=== PATIENT | male | born 1960 | race Two or more races ===

== ENCOUNTER 2018-02-19 12:51 | Emergency (ER) | payer BC ==
[2018-02-19 13:19] VITALS: BP 116/79
--- NOTE | 2018-02-19 14:14 | UC ---
Head Injury HPI - HPI Summary HPI Summary: 57 year old male with head injury. While playing volley ball was hit in head last night. [place] his head ring for a few seconds. Did not fall. No VALERO at the time. Kept playing for 2 + more hours. Injury about 1930 yesterday. Slept fine . Went to work and started to have VALERO. no neuro deficits. - History Of Current Complaint Chief Complaint: UCHeadInjury Stated Complaint: HEAD INJURY Time Seen by Provider: 02/19/18 13:13 Hx Obtained From: Patient Onset/Duration: Gradual Onset Pain Intensity: 6 Associated Signs And Symptoms: Positive: Nausea. Negative: LOC (Time In Secs./ Mins/Hrs), Confusion, Memory Loss, Seizure, Epistaxis, Neck Pain, Vomiting - Allergies/Home Medications Allergies/Adverse Reactions: Allergies Allergy/AdvReac Type Severity Reaction Status Date / Time No Known Allergies Allergy Verified 02/19/18 13:19 PMH/Surg Hx/FS Hx/Imm Hx Previously Healthy: Yes - Surgical History Surgical History: Yes Surgery Procedure, Year, and Place: left knee arthroscopy 2004(?) - Family History Known Family History: Positive: None - Social History Occupation: Employed Full-time - revenue accountant Alcohol Use: None Substance Use Type: None Smoking Status (MU): Never Smoked Tobacco Household Exposure Type: Cigarettes Review of Systems Gastrointestinal: Nausea Neurological: Headache Is Patient Immunocompromised?: No All Other Systems Reviewed And Are Negative: Yes Physical Exam Triage Information Reviewed: Yes Appearance: Well-Appearing, No Pain Distress, Well-Nourished Vital Signs: Initial Vital Signs Temp 98 F 02/19/18 13:17 Pulse 63 02/19/18 13:17 Resp 16 02/19/18 13:17 BP 116/79 02/19/18 13:17 Pulse Ox 99 02/19/18 13:17 Vital Signs Reviewed: Yes Eye Exam: Normal ENT Exam: Normal ENT: Positive: Normal ENT inspection, Hearing grossly normal, Pharynx normal, TMs normal Dental Exam: Normal Neck exam: Normal Neck: Positive: 1 Respiratory Exam: Normal Cardiovascular Exam: Normal Abdominal Exam: Normal Musculoskeletal Exam: Normal Neurological Exam: Normal Neurological: Positive: Alert, Muscle Tone Normal, Other: - CN 2-12 intact at this time. finger to nose normal. no hill sign. no CSF leak. Psychological Exam: Normal Skin Exam: Normal Skin: Positive: Other - left side of face with some mild redness . non tender to palpation. normal sensation to palpation. no facial droop . no break in skin. Head Injury Course/Dx - Course Course Of Treatment: mild concussion without LOC. No neuro deficits. VALERO about 6 /10 and mild nausea. no vomiting. no CSF leak. No blood thinners. no concern for ICH. if develop worsened Valero or any neuro deficits then go to ED> he is aware and agreees. no contact sports. no gym unless symptom free - Differential Dx/Diagnosis Differential Diagnosis/HQI/PQRI: Concussion Without LOC Provider Diagnoses: Concussion without LOC Discharge - Sign-Out/Discharge Documenting (check all that apply): Discharge/Admit/Transfer - Discharge Plan Condition: Good Disposition: HOME Patient Education Materials: Concussion (ED) Referrals: Ashok Booth MD [Primary Care Provider] - 4 Days - Billing Disposition and Condition Condition: GOOD Disposition: HOME
== END 2018-02-19 14:38 | disposition home or self-care (01) ==
LOC: UCEAST 12:51
DX: S06.0X0A Concussion without loss of consciousness, initial encounter (principal); W21.06XA Struck by volleyball, initial encounter; Y93.68 Activity, volleyball (beach) (court); Y92.9 Unspecified place or not applicable
CPT/HCPCS: 99211; G0463

== ENCOUNTER 2019-09-07 05:42 | Inpatient (IN) | payer BC ==
[~2019-09-07 05:42] MED LIST: Buffered Lidocaine 1% SYRIN* 1 ML/SYRINGE INTRADERM ONE
[2019-09-07] MEDS ORDERED: Famotidine IV* 10 MG/ML 2 ML (20 mg) IV ONE (06:00)
[2019-09-07] MEDS ORDERED: Lactated Ringers 1000 ML Bag* 1,000 ML IV SCH (06:00)
[2019-09-07] MEDS ORDERED: Buffered Lidocaine 1% SYRIN* 1 ML/SYRINGE INTRADERM ONE (06:37)
[2019-09-07] MEDS ORDERED: ceFAZolin 2 GM in NS PREMIX(*) 2 GM/100 ML BAG IVPB ONE ×2 (06:37→12:29)
[2019-09-07] MEDS ORDERED: Famotidine IV* 10 MG/ML 2 ML (20 mg) ONE (06:37)
[2019-09-07] MEDS ORDERED: Bacitracin INJECTION* 50,000 UNITS ONE ×2 (07:07→13:03)
[2019-09-07] MEDS ORDERED: Bupivacaine 0.25% EPI 200,000* 30 ML SDV ONE (07:07)
[2019-09-07] MEDS ORDERED: fentaNYL* 50 MCG/ML 2 ML VIAL (100 MCG VIAL) ONE ×3 (07:35→09:38)
[2019-09-07] MEDS ORDERED: Midazolam* 1 MG/ML 5 ML VIAL (5 MG) ONE (07:35)
[2019-09-07] MEDS ORDERED: fentaNYL* 50 MCG/ML 5 ML VIAL (250 MCG VIAL) ONE (08:44)
[2019-09-07] MEDS ORDERED: Ondansetron INJ* 2 MG/ML VIAL ONE (08:55)
[2019-09-07] MEDS ORDERED: DiMENhydriNATE IV* 50 MG/ML VIAL ONE ×2 (08:55→14:33)
[2019-09-07] MEDS ORDERED: Dexamethasone IV* 4 MG/ML 1 ML (4 MG) ONE (08:55)
[2019-09-07] MEDS ORDERED: Propofol* 10 MG/ML 20 ML BTL ONE ×3 (08:55→11:20)
[2019-09-07] MEDS ORDERED: Succinylcholine* 20 MG/ML 10 ML VIAL ONE (08:55)
[2019-09-07] MEDS ORDERED: DiMENhydriNATE IV* 50 MG/ML VIAL IV PUSH PRN (10:02)
[2019-09-07] MEDS ORDERED: HYDROmorphone INJ1* 1 MG/ML SYRINGE IV PRN (10:02)
[2019-09-07] MEDS ORDERED: oxyCODONE TAB* 5 MG TAB PO PRN (10:02)
[2019-09-07] MEDS ORDERED: Naloxone* 0.4 MG/ML 1 ML VIAL IV PRN (10:02)
[2019-09-07] MEDS ORDERED: Propofol* 500 MG/50 ML BTL ONE ×2 (10:50→11:29)
[2019-09-07] MEDS ORDERED: Magnesium Hydroxide LIQ* 30 ML UDC PO PRN (14:14)
[2019-09-07] MEDS ORDERED: Ondansetron INJ* 2 MG/ML VIAL IV PRN (14:14)
[2019-09-07] MEDS ORDERED: HYDROcodone/ACETAMIN 5-325 MG* 1 TAB PO PRN ×2 (14:14)
[2019-09-07] MEDS ORDERED: Senna TAB 8.6 mg* TAB PO PRN (15:22)
[2019-09-07] MEDS ORDERED: HYDROcodone/ACETAMIN 5-325 MG* 1 TAB ONE (15:26)
--- OUTSIDE RECORDS SUMMARY | 2019-09-07 16:37 | XMS REPORT | Continuity of Care Document ---
:1960 External Reference #:[id number] Author Name Ashok Booth M.D. Address [address] [facility] [address] [place] [id number] Care Team Providers Name Role Phone Pain Clinic - Pain Medicine Care Team Information Sewing Machine Operator [phone] [facility] - Care Team Information Sewing Machine Operator [phone] Gastroenterology Fer Ramsey MD - Care Team Information Sewing Machine Operator [phone] Neurological Surgery Shaquille Jenkins Md - Care Team Information Sewing Machine Operator [phone] Neurological Surgery Problems Active Problems Provider Date Benign essential hypertension Ashok Booth M.D. Onset: 08/13/2010 Gout Ashok Booth M.D. Onset: 08/13/2010 Low back pain Ashok Booth M.D. Onset: 08/13/2010 Spinal stenosis of lumbar region Ashok Booth M.D. Onset: 08/13/2010 Essential hypertension Ashok Booth M.D. Onset: 10/27/2015 Social History Type Date Description Comments Sex Unknown Tobacco Use Reviewed: 04/27/14 Tobacco Of Any Kind Denies Use Tobacco Use Reviewed: 08/27/19 Denies Cigarette Use Smoking Status Reviewed: 08/27/19 Denies Cigarette Use ETOH Use Rare Alcohol Use Allergies, Adverse Reactions, Alerts Description No Known Drug Allergies Medications Active Medications SIG Qnty Indications Ordering Date Provider Losartan take 1 tablet 90tabs I10 Emmy, 11/13/2016 Potassium/Hydrochlorothiaz by mouth pooja Pulido M.D. ebony morning for 50-12.5mg Tablets high blood pressure Naproxen Sodium 2 caps before Unknown 10/26/2015 220mg Capsules playing sports Allopurinol take 1 tablet 90tabs M10.9 Silcoff, 07/25/2012 300mg Tablets daily to Madyson Pulido prevent gout Hydrochlorothiazide take 1 tablet 90tabs I10 Silcoff, 07/24/2012 12.5mg by mouth once Madyson Pulido Tablets daily Amlodipine Besylate take 1 tablet 90tabs I10 Silcoff, 05/31/2009 10mg Tablets by mouth once Madyson Pulido daily for high blood pressure Medications Administered in Office Medication SIG Qnty Indications Ordering Provider Date injection, kenalog, 10 mg Ashok Booth M.D. 05/22/2015 Injection injection, kenalog, 10 mg Ashok Booth M.D. 01/07/2014 Injection Immunizations CPT Code Status Date Vaccine Lot # [id number] Given 06/23/2019 Influenza Virus Vaccine, Quadrivalent, Split, [id number] Preservative Free 26591 Given 05/29/2018 Influenza Virus Vaccine, Quadrivalent, Split, [id number] Preservative Free 50459 Given 05/14/2017 Td Immunization [id number] 67838 Given 05/14/2017 Influenza Virus Vaccine, Quadrivalent, Split, [id number] Preservative Free 14260 Given 07/11/2015 Influenza Virus Vaccine, Quadrivalent, Split, [id number] Preservative Free 93626 Given 08/12/2014 Flu, Split Virus 3Yrs [id number] 92317 Given 10/27/2013 Flu, Split Virus 3Yrs [id number] 85744 Given 07/24/2012 Flu, Split Virus 3Yrs [id number] 99321 Given 06/05/2011 Flu, Split Virus 3Yrs [id number] 68222 Given 07/07/2009 Flu, Split Virus 3Yrs [id number] 29865 Given 08/06/2008 Flu, Split Virus 3Yrs [id number] 37433 Given 04/14/2007 Adacel or Boostrix, TDaP [id number] Vital Signs Date Vital Result Comment 08/27/2019 1:15pm BP Systolic 112 mmHg BP Diastolic 72 mmHg Heart Rate 52 /min reg Respiratory Rate 12 /min not laboured Height 66.5 inches 5'6.50" w/shoes Weight 185.00 lb w/shoes BMI (Body Mass Index) 29.4 kg/m2 05/31/2019 1:14pm BP Systolic 126 mmHg BP Diastolic 72 mmHg Weight 183.00 lb Results Test Acquired Date Facility Test Result H/L Range Note CBC Auto 08/27/2019 [facility] White Blood 4.5 10^3/uL Normal 3.5- 10.8 Diff [phone] Count Red Blood Count 4.57 10^6/uL Normal 4.18-5.48 Hemoglobin 14.6 g/dL Normal 14.0-18.0 Hematocrit 41 % Low 42-52 Mean Corpuscular Volume 90 fL Normal 80-94 Mean Corpuscular Hemoglobin 32 pg High 27-31 Mean Corpuscular HGB Conc 36 g/dL Normal 31-36 Red Cell Distribution Width 14 % Normal 10-15 Platelet Count 231 10^3/uL Normal 150-450 Mean Platelet Volume 7.7 fL Normal 7.4-10.4 Abs Neutrophils 2.1 10^3/uL Normal 1.5-7.7 Abs Lymphocytes 1.9 10^3/uL Normal 1.0-4.8 Abs Monocytes 0.4 10^3/uL Normal 0-0.8 Abs Eosinophils 0.1 10^3/uL Normal 0-0.6 Abs Basophils 0.1 10^3/uL Normal 0-0.2 Abs Nucleated RBC 0.0 10^3/uL Granulocyte % 46.0 % Lymphocyte % 41.8 % Monocyte % 9.4 % Eosinophil % 1.6 % Basophil % 1.2 % Nucleated Red Blood Cells % 0.0 Basic Metabolic Panel 08/27/2019 [facility] Sodium 138 mmol/L Normal 135-145 [phone] Potassium 3.4 mmol/L Low 3.5-5.0 Chloride 101 mmol/L Normal 101-111 Co2 Carbon Dioxide 29 mmol/L Normal 22-32 Anion Gap 8 mmol/L Normal 2-11 Glucose 126 mg/dL High 70-100 Blood Urea Nitrogen 19 mg/dL Normal 6-24 Creatinine 0.80 mg/dL Normal 0.67-1.17 BUN/Creatinine Ratio 23.8 High 8-20 Calcium 9.3 mg/dL Normal 8.6-10.3 Egfr Non- 99.6 >60 Egfr 120.6 >60 1 Laboratory test 08/27/2019 [facility] Uric Acid 5.5 mg/dL Normal 4.4- 7.6 finding [phone] 1 Because ethnic data is not always readily available, this report includes an eGFR for both -Americans and non- Americans. The National Kidney Disease Education Program (NKDEP) does not endorse the use of the MDRD equation for patients that are not between the ages of 18 and 70, are , have extremes of body size, muscle mass, or nutritional status, or are non- or non-. According to the National Kidney Foundation, irrespective of diagnosis, the stage of the disease is based on the level of kidney function: Stage Description GFR(mL/min/1.73 m(2)) 1 Kidney damage with normal or decreased GFR 90 2 Kidney damage with mild decrease in GFR 60-89 3 Moderate decrease in GFR 30-59 4 Severe decrease in GFR 15-29 5 Kidney failure <15 (or dialysis) Procedures Date Code Description Status 08/27/2019 55916 Electrocardiogram Complete Completed 05/31/2019 37589 Electrocardiogram Complete Completed 08/06/2012 16789430 Colonoscopy Completed Medical Devices Description No Information Available Encounters Type Date Location Provider Dx Diagnosis Office Visit 08/27/2019 Main Office Ashok Booth Z01.818 Encounter for other 12:55p Madyson preprocedural examination M48.061 Spinal stenosis, lumbar region without neurogenic markus M54.5 Low back pain I10 Essential (primary) hypertension M10.9 Gout, unspecified Z68.29 Body mass index (BMI) 29.0-29.9, adult Office Visit 05/31/2019 12:55p Main Office Ashok Booth M48.061 Spinal stenosis, M.D. 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 examination 08/27/2019 M48.061 Spinal stenosis, lumbar region without Ashok Booth M.D. neurogenic claudicati 08/27/2019 M54.5 Low back pain Ashok Booth M.D. 08/27/2019 I10 Essential (primary) hypertension Ashok Booth M.D. 08/27/2019 M10.9 Gout, unspecified Ashok Booth M.D. 08/27/2019 Z68.29 Body mass index (BMI) 29.0-29.9, adult Ashok Booth M.D. 06/23/2019 Z23 Encounter for immunization Nurse's Schedule 05/31/2019 M48.061 Spinal stenosis, lumbar region without Ashok Booth M.D. neurogenic claudicati 05/31/2019 M54.5 Low back pain Ashok Booth M.D. 05/31/2019 M10.9 Gout, unspecified Ashok Booth M.D. 05/31/2019 I10 Essential (primary) hypertension Ashok Booth M.D. 05/31/2019 R10.32 Left lower quadrant pain Ashok Booth M.D. 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 specified male genital organs 05/31/2019 Z23 Encounter for immunization Ashok Booth M.D. Plan of Treatment Future Appointment(s):12/01/2019 1:45 pm - Nurse's Schedule at Main Tfxpce6812/01 1:45 pm - Ashok Booth M.D. at Main Dblcrr3208/27/2019 - Ashok Booth M.D.Z01.818 Encounter for other preprocedural examinationComments:Pt is medically stable and w/o overt signs or symptoms concerning for coronary disease. His EKG is unremarkable. Labs significant for unremarkable CBC and BMP (K 3.4), normal uric acid. He may proceed with the planned surgery without need for further testing.M48.061 Spinal stenosis, lumbar region without neurogenic tqeatvsfduC88.5 Low back painI10 Essential (primary) hypertensionComments:will D /C aspirin, wc he has been taking for primary prevention but wc is no longer indicated.M10.9 Gout, rsztqmcbxfyM28.29 Body mass index (BMI) 29.0-29.9, adult Functional Status Description No Information Available Mental Status Description No Information Available Referrals Description No Information Available
--- OUTSIDE RECORDS SUMMARY | 2019-09-07 16:37 | XMS REPORT | Continuity of Care Document ---
:1960 External Reference #:[id number] Author Name Shaquille Jenkins MD (transmitted by agent of provider Dianne Mirza ) Address [address] [place] [address] Care Team Providers Name Role Phone Ashok Booth MD - Internal Care Team Information Store Stock Help [phone] Medicine Problems Description No Information Available Social History Type Date Description Comments Sex Unknown ETOH Use Rarely consumes alcohol Tobacco Use Start: Unknown Patient has never smoked Recreational Drug Use Denies Drug Use Smoking Status Reviewed: 07/30/19 Patient has never smoked Exercise Type/Frequency Exercises regularly Allergies, Adverse Reactions, Alerts Description No Known Drug Allergies Medications Active Medications SIG Qnty Indications Ordering Date Provider Aspir-Low 1 by mouth Unknown 81mg Tablets DR every day Losartan 1 by mouth Unknown Potassium/Hydrochlorothiazi every day de 50-12.5mg Tablets Oxycodone-Acetaminophen 1-2 tabs by Unknown 5-325mg mouth every Tablets 4-6 hours as needed for pain Naproxen Sodium 1 tab as Unknown 220mg Tablets needed Allopurinol 1 by mouth Unknown 300mg Tablets every day Hydrochlorothiazide 1 by mouth Unknown 12.5mg Tablets every day Amlodipine Besylate 1 by mouth Unknown 10mg Tablets every day Glucosamine Chondroitin 1 by mouth Unknown 1500 Complex twice a day 1500Com Capsules CBD Oil Unknown Immunizations Description No Information Available Vital Signs Date Vital Result Comment 07/30/2019 9:49am Height 66 inches 5'6" Weight 180.00 lb BP Systolic 126 mmHg BP Diastolic 82 mmHg Pain Level 8 BMI (Body Mass Index) 29.0 kg/m2 04/28/2019 11:30am Height 66 inches 5'6" Weight 180.00 lb Heart Rate 52 /min BP Systolic Sitting 140 mmHg BP Diastolic Sitting 82 mmHg Pain Level 8 when walking BMI (Body Mass Index) 29.0 kg/m2 Results Description No Information Available Procedures Description No Information Available Medical Devices Description No Information Available Encounters Type Date Location Provider Dx Diagnosis Office Visit 04/28/2019 [facility] M43.16 Spondylolisthesi 11:30a [facility] Jenkins MD s, lumbar region M47.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, lumbar region M48.062 Spinal stenosis, lumbar region with neurogenic claudication Assessments Date Code Description Provider 07/30/2019 M43.16 Spondylolisthesis, lumbar region Shaquille Jenkins MD 07/30/2019 M47.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, Shaquille Jenkins MD lumbar region 07/30/2019 M48.062 Spinal stenosis, lumbar region with Shaquille Jenkins MD neurogenic claudication 04/28/2019 M43.16 Spondylolisthesis, lumbar region Shaquille Jenkins MD 04/28/2019 M47.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, Shaquille Jenkins MD lumbar region 04/28/2019 M48.062 Spinal stenosis, lumbar region with Shaquille Jenkins MD neurogenic claudication Plan of Treatment 07/30/2019 - Shaquille Jenkins, MDM43.16 Spondylolisthesis, lumbar regionFollow up:RV one week, one month, three months postop.M47.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, lumbar nbwipcO55.062 Spinal stenosis, lumbar region with neurogenic claudication Functional Status Description No Information Available Mental Status Description No Information Available Referrals Description No Information Available
--- OUTSIDE RECORDS SUMMARY | 2019-09-07 16:37 | XMS REPORT | Continuity of Care Document ---
:1960 External Reference #:[id number] Author Name Liz Moyer Care Team Providers Name Role Phone Pain Clinic - Pain Medicine Care Team Information Liquid Hydrogen Plant Operator [phone] [facility] - Care Team Information Liquid Hydrogen Plant Operator [phone] Gastroenterology Fer Ramsey MD - Care Team Information Liquid Hydrogen Plant Operator [phone] Neurological Surgery Shaquille Jenkins Md - Care Team Information Liquid Hydrogen Plant Operator [phone] Neurological Surgery Problems Active Problems Provider Date [...] 90tabs I10 Emmy, 11/13/2016 Potassium/Hydrochlorothiaz by mouth every Madyson Pulido ebony morning for 50-12.5mg Tablets high blood pressure Naproxen Sodium 2 caps before Unknown 10/26/2015 220mg Capsules playing sports Allopurinol take 1 tablet 90tabs M10.9 Silcoff, 07/25/2012 300mg Tablets daily to Madyson Pulido prevent gout Hydrochlorothiazide take 1 tablet 90tabs I10 Silcoff, 07/24/2012 12.5mg by mouth once Madyson Pulido Tablets daily Amlodipine Besylate take 1 tablet 90tabs I10 Silcovarsha, 05/31/2009 10mg Tablets by mouth once Madyson Pulido daily for high blood pressure Medications Administered in Office Medication SIG Qnty Indications Ordering Provider Date injection, kenalog, 10 mg Ashok Booth M.D. 05/22/2015 Injection injection, kenalog, 10 mg AntoinettecoAshok maddox M.D. 01/07/2014 Injection Immunizations CPT Code Status Date Vaccine Lot # [id number] Given 06/23/2019 Influenza Virus Vaccine, Quadrivalent, Split, [id number] Preservative Free 61361 Given 05/29/2018 Influenza Virus Vaccine, Quadrivalent, Split, [id number] Preservative Free 58822 Given 05/14/2017 Td Immunization [id number] 48077 Given 05/14/2017 Influenza Virus Vaccine, Quadrivalent, Split, [id number] Preservative Free 76150 Given 07/11/2015 Influenza Virus Vaccine, Quadrivalent, Split, [id number] Preservative Free 54803 Given 08/12/2014 Flu, Split Virus 3Yrs [id number] 84884 Given 10/27/2013 Flu, Split Virus 3Yrs [id number] 67776 Given 07/24/2012 Flu, Split Virus 3Yrs [id number] 75413 Given 06/05/2011 Flu, Split Virus 3Yrs [id number] 80918 Given 07/07/2009 Flu, Split Virus 3Yrs [id number] 71598 Given 08/06/2008 Flu, Split Virus 3Yrs [id number] 11075 Given 04/14/2007 Adacel or Boostrix, TDaP [id number] Vital Signs Date Vital Result Comment 08/27/2019 [...] Result H/L Range Note CBC Auto 08/27/2019 [facility] White Blood 4.5 10^3/uL Normal 3.5- 10.8 Diff [phone] Count Red Blood Count 4.57 10^6/uL Normal [...] Cells % 0.0 Basic Metabolic Panel 08/27/2019 [facility] Sodium 138 mmol/L Normal 135-145 [phone] Potassium 3.4 mmol/L Low 3.5-5.0 Chloride 101 mmol/L Normal 101-111 Co2 Carbon Dioxide 29 mmol/L Normal 22-32 Anion Gap 8 mmol/L Normal 2-11 Glucose 126 mg/dL High 70-100 Blood Urea Nitrogen 19 mg/dL Normal 6-24 Creatinine 0.80 mg/dL Normal 0.67-1.17 BUN/Creatinine Ratio 23.8 High 8-20 Calcium 9.3 mg/dL Normal 8.6-10.3 Egfr Non- 99.6 >60 Egfr 120.6 >60 1 Laboratory test 08/27/2019 [facility] Uric Acid 5.5 mg/dL Normal 4.4- 7.6 finding [phone] 1 Because ethnic data is not always [...] dialysis) Procedures Date Code Description Status 08/27/2019 02353 Electrocardiogram Complete Completed 05/31/2019 76974 Electrocardiogram Complete Completed 08/06/2012 54031773 Colonoscopy Completed Medical Devices Description No Information Available Encounters Type Date Location Provider Dx Diagnosis Office Visit 08/27/2019 Main Office Ashok Booth, Z01.818 Encounter for other 12:55p MGuillerminaDGuillermina preprocedural examination M48.061 Spinal stenosis, lumbar region [...] 1:45 pm - Nurse's Schedule at Main Aypqfo9212/01 1:45 pm - Ashok Booth M.D. at Main Quitvp9008/27/2019 - Ashok Booth M.D.Z01.818 Encounter for other preprocedural examinationComments:Pt is medically stable and w/o overt signs or symptoms concerning for coronary disease. His EKG is unremarkable. Labs significant for unremarkable CBC and BMP (K 3.4), normal uric acid. He may proceed with the planned surgery without need for further testing.M48.061 Spinal stenosis, lumbar region without neurogenic qlxzxbklblW97.5 Low back painI10 Essential (primary) hypertensionComments:will D /C aspirin, wc he has been taking for primary prevention but wc is no longer indicated.M10.9 Gout, qppjkanqngqJ88.29 Body mass index (BMI) 29.0-29.9, adult Functional Status Description No Information Available Mental Status Description No Information Available Referrals Description No Information Available
--- OUTSIDE RECORDS SUMMARY | 2019-09-07 16:37 | XMS REPORT | Continuity of Care Document ---
:1960 External Reference #:[id number] Author Name Shaquille Jenkins MD (transmitted by agent of provider Dianne Mirza ) Address [address] [place] [address] Care Team Providers Name Role Phone Ashok Booth MD - Internal Care Team Information Food Inspector Medicine Problems Description No Information Available Social History Type Date Description Comments Sex Unknown ETOH Use Rarely consumes alcohol Tobacco Use Start: Unknown Patient has never smoked Recreational Drug Use Denies Drug Use Smoking Status Reviewed: 09/01/19 Patient has never smoked Exercise Type/Frequency Exercises regularly Allergies, Adverse Reactions, Alerts Description No Known Drug Allergies Medications Active Medications SIG Qnty Indications Ordering Date Provider Angie Still When out of [facility] 07/30/2019 bed after MD Gregory surgery Losartan 1 by mouth Unknown Potassium/Hydrochlorothiazi every day de 50-12.5mg Tablets Naproxen Sodium 1 tab as Unknown 220mg [...] Available Vital Signs Date Vital Result Comment 09/01/2019 9:32am Height 66 inches 5'6" Weight 195.00 lb Heart Rate 60 /min BP Systolic 130 mmHg BP Diastolic 72 mmHg Pain Level 5 lower back BMI (Body Mass Index) 31.5 kg/m2 07/30/2019 9:49am Height 66 inches 5'6" Weight 180.00 lb BP Systolic 126 mmHg BP Diastolic 82 mmHg Pain Level 8 BMI (Body Mass Index) 29.0 kg/m2 Results Test Acquired Date Facility Test Result H/L Range Note CBC No Diff 08/30/2019 [facility] White Blood 4.8 10^3/uL Normal 3.5-10.8 [place] [address] [phone] Red Blood Count 4.73 10^6/uL Normal 4.18-5.48 Hemoglobin 15.1 g/dL Normal 14.0-18.0 Hematocrit 43 % Normal 42-52 Mean Corpuscular Volume 91 fL Normal 80-94 Mean Corpuscular Hemoglobin 32 pg High 27-31 Mean Corpuscular HGB Conc 35 g/dL Normal 31-36 Red Cell Distribution Width 14 % Normal 10-15 Platelet Count 232 10^3/uL Normal 150-450 Mean Platelet Volume 7.7 fL Normal 7.4-10.4 Basic Metabolic 08/30/2019 [facility] Sodium 138 mmol/L Normal 135-[address] [place] [address] [phone] Potassium 3.7 mmol/L Normal 3.5-5.0 Chloride 104 mmol/L Normal 101-111 Co2 Carbon Dioxide 26 mmol/L Normal 22-32 Anion Gap 8 mmol/L Normal 2-11 Glucose 97 mg/dL Normal 70-100 Blood Urea Nitrogen 22 mg/dL Normal 6-24 Creatinine 0.69 mg/dL Normal 0.67-1.17 BUN/Creatinine Ratio 31.9 High 8-20 Calcium 9.3 mg/dL Normal 8.6-10.3 Egfr Non- 118.2 >60 Egfr 143.0 >60 1 Inr/Protime 08/30/2019 [facility] Inr 0.93 Normal 0.82-1.[address] [place] [address] [phone] Laboratory test 08/30/2019 [facility] Partial 33.7 Normal 26.0 -38.[address] [address] Time PTT [phone] Type & Screen 08/30/2019 [facility] Patient A Positive [place] [address] [phone] Antibody Screen NEGATIVE Urinalysis Profile 08/30/2019 [facility] Urine Color Yellow [address] [place] [address] [phone] Urine Appearance Clear Urine Specific [place] 1.017 Normal 1.010-1.030 Urine pH 7.0 Normal 5-9 Urine Urobilinogen Negative Negative Urine Ketones Negative Negative Urine Protein Negative Negative Urine Leukocytes Negative Negative Urine Blood Negative Negative Urine Nitrite Negative Negative Urine Bilirubin Negative Negative Urine Glucose Negative Negative 1 Because ethnic data is not always [...] 15-29 5 Kidney failure <15 (or dialysis) 2 Standard intensity warfarin therapeutic range: 2.0-3.0 High intensity warfarin therapeutic range: 2.5-3.5 Procedures Description No Information Available Medical Devices Description No Information Available Encounters Type Date Location Provider Dx Diagnosis Office Visit 04/28/2019 [facility] M43.16 Spondylolisthesi 11:30a [facility] Jenkins MD s, lumbar region M47.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, lumbar region M48.062 Spinal stenosis, lumbar region with neurogenic claudication Assessments Date Code Description Provider 09/01/2019 M43.16 Spondylolisthesis, lumbar region Shaquille Jenkins MD 09/01/2019 M47.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, Shaquille Jenkins MD lumbar region 08/10/2019 M43.16 Spondylolisthesis, lumbar region Shaquille Jenkins MD 08/10/2019 M47.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, Shaquille Jenkins MD lumbar region 08/10/2019 M48.062 Spinal stenosis, lumbar region with Shaquille Jenkins MD neurogenic claudication 07/30/2019 M43.16 Spondylolisthesis, lumbar region Shaquille Jenkins [...] Jenkins MD neurogenic claudication Plan of Treatment Future Appointment(s):12/10/2019 10:30 am - Shaquille Jenkins MD [facility]/15/2019 11:30 am - Shaquille Jenkins MD at [facility]09/17/2019 2:30 pm - Shaquille Jenkins MD at [facility]09/07/2019 7:30 am - MAGDALENO Beck at [facility]09/07/2019 7:30 am - Shaquille Jenkins MD at [facility]09/01/2019 - Shaquille Jenkins, MDM43.16 Spondylolisthesis, lumbar regionFollow up:RV one week, one month, three months postop. Please obtain Operative report from previous surgery prior to scheduled operative day.M47.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, lumbar region Functional Status Description No Information Available Mental Status Description No Information Available Referrals Description No Information Available
--- NOTE | 2019-09-07 17:23 | CONS ---
CONSULTATION REPORT: DATE OF CONSULT: 09/07/19 ATTENDING PHYSICIAN WHILE IN THE HOSPITAL: Dr. Valdez Duran (dictated by MAGDALENO Grayson). CONSULTING PHYSICIAN: Dr. Jenkins. REASON FOR CONSULT: Medical co-management. HISTORY OF PRESENT ILLNESS: Jagjit Vincent is a 59-year-old male with past medical history significant for lumbar stenosis, hypertension, and gout who presented for surgery with Dr. Jenkins today. He was evaluated in the post- acute care unit and he is awake after surgery. He admits to feeling tired and some little nausea, but denies vomiting. He denies symptomatic numbness or tingling in his extremities, abdominal pain, chest pain, difficulty breathing, fever, or chills. He had L3 to L5 TLIF and laminectomy at L3. His surgery went well per Dr. Jenkins and the patient is otherwise feeling comfortable in the PACU. PAST MEDICAL HISTORY: 1. Hypertension. 2. Lumbar stenosis. 3. Gout. PAST SURGICAL HISTORY: 1. Left knee arthroscopy. 2. L4-L5 TLIF. ALLERGIES: No known drug allergies. FAMILY HISTORY: Grandfather with a history of stroke. Mother, history of hypertension. SOCIAL HISTORY: The patient is a never smoker. He drinks rarely. He denies illicit drug use. He works as an chief accountant. He is and has 2 children. REVIEW OF SYSTEMS: An 11-point review of systems was completed and all pertinent positives and negatives are above in the HPI. All other systems are negative. PHYSICAL EXAM: General: A well-developed, well-nourished middle-aged male, lying in hospital bed, appearing comfortable, in no acute distress. Eyes: PERRL. Sclerae anicteric. ENT: Mucous membranes moist. Lungs: Clear to auscultation throughout. Cardio: Regular rate and rhythm without murmurs, rubs , or gallops. Abdomen: Normoactive bowel sounds x4 quadrants. The abdomen is soft, nontender, nondistended. No hepatosplenomegaly appreciated. Extremities : No clubbing, cyanosis, or edema. Neuro: The patient is alert and oriented x3. No focal deficits. Able to move all extremities. Sensation to light touch is grossly intact throughout. DIAGNOSTIC STUDIES/LAB DATA: None to report at this time. ASSESSMENT AND PLAN: Jagjit Vincent is a 59-year-old male with past medical history significant for gout, hypertension, and lumbar stenosis who is status post L3-L5 TLIF and L3 laminectomy with Dr. Jenkins today. He is postop day 0. The hospital medicine team has been consulted for medical co-management. 1. Hypertension. I will continue the patient's home amlodipine, losartan, and hydrochlorothiazide. He is normotensive at this point. I will order holding parameters for his amlodipine to hold for systolic blood pressure less than 110. 2. Gout. Continue home allopurinol. 3. Status post lumbar surgery. Management per Dr. Jenkins. The patient has pain control ordered. I will order more bowel regimen p.r.n. and I have ordered physical therapy for tomorrow. Dr. Jenkins has ordered an x-ray for his review tomorrow. 4. Disposition: Per Dr. Jenkins. Thank you for allowing us to participate in the care of this patient. We will follow during this hospitalization. MAGDALENO GRAYSON [id number]/[facility] #: [id number] [place]
[2019-09-07] MEDS ORDERED: PROCHLORPERAZINE INJ 5 MG/ML 2 ML VIAL IV PRN (19:12)
--- NOTE | 2019-09-07 21:23 | OP ---
DATE OF OPERATION: 09/07/19 - ROOM #334 DATE OF : 64 SURGEON: Shaquille Jenkins MD TASSEL CLIPPER: Abbey Ariza, ANNEMARIE. The case was done with the assistance of an ACCOUNTING MACHINE SERVICER because of the complexity of the case. ANESTHESIA: General. PRE-OP DIAGNOSES: Degenerative disc disease L3-L4, spondylolisthesis with severe stenosis. POST-OP DIAGNOSES: Degenerative disc disease L3-L4, spondylolisthesis with severe stenosis. OPERATIVE PROCEDURE: The patient underwent a right L3-L4 minimally invasive TLIF with PEEK interbody cage, iliac crest bone graft, and DBX with harvesting of the right iliac crest bone graft through a separate fascial incision, revision of previous instrumentation L4 and L5 with replacement of the pedicle screws L4-L5, placement of new pedicle screws at L3 with posterolateral fusion at L3-L4 with DBX and L3 laminectomy for decompression with intraoperative navigation and intraoperative monitoring. ESTIMATED BLOOD LOSS: 30 cc. COMPLICATIONS: None. SUMMARY: The patient is a very pleasant 59-year-old gentleman who had undergone a L4-L5 TLIF for spondylolisthesis in the past. He presented with adjacent level disease at L3-L4 with grade 1 spondylolisthesis and severe stenosis with extensive degenerative disc disease. After failing conservative treatment modalities, he was offered the option of surgical intervention. After explaining expectations, limitations, and possible complications to the patient and his family and a friend who accompanied him in the morning of the surgery, with complications including but not limited to bleeding, infection, risk of injury to adjacent structures, coma, paralysis, , need for additional procedure, anesthesia risk, stroke, blindness, cancer, instability, hardware failure, pseudoarthrosis, spinal fluid leak, need for additional procedures, injury to intraabdominal contents, loss of bladder or bowel control, loss of use of limbs, neuropathy, deep venous thrombosis, pulmonary embolism, need for prolonged ICU stay, prolonged hospitalization, prolonged rehabilitation, need for tracheostomy or gastrostomy, and need for additional procedures, anesthesia risks. The patient was agreeable to proceed with surgery. Informed consent was obtained. The patient understood that his condition may not improve and in fact may get worse after the surgery and that he may need additional procedure in the future. He also understood that operative plan may be modified according to intraoperative findings and conditions and that his case may be abandoned or done in more than one stages. DESCRIPTION OF PROCEDURE: The patient was brought to the operating room and was placed under general anesthesia by the anesthesia team. He was carefully positioned prone on the Aime table and all bony prominences were meticulously padded. His skin was prepped and draped in the standard fashion and a previous midline incision was identified and marked on the skin in cephalad and caudal extension. After appropriate surgical pause and patient identification, the incision was infiltrated with local anesthetic and incised with the use of #10 surgical blade. Bovie cautery was used to advance the incision towards to the dorsal fascia. Self-retaining retractors were introduced into the field. The skin was then undermined at the level of the fascia in order to accommodate the insertion and revision of instrumentation. Self-retaining retractors were advanced further into the field. The right iliac crest was palpated and through a separate fascial incision, the Corex needle was used to harvest the iliac crest bone graft. Fascial incision was then irrigated and closed with 0 interrupted Vicryl sutures. A small midline incision was performed over proximally [id number] process and the clamp for the navigation star was secured to place. Intraoperative O-arm imaging was obtained and the patient data was transferred to the navigation platform. With the assistance of intraoperative navigation, the projection of the pedicles as well as the pedicles of L3 were marked on the fascia and 2 small incisions were performed on the fascia. The pedicles of L3 were cannulated with high-speed drill, awl-tip tap, and 2 ATS Medtronic Voyager screws were placed with 6.5 x 55 mm dimensions. Then, the METRx tubular retractor was inserted and over a series of dilators with the use of intraoperative navigation, and the previous instrumentation was gently identified and exposed with Bovie cautery after removing the screw head caps. Of note, the previous instrumentation was a K2M [place] system . The rods were removed and the screws were removed through the same incisions. Pedicle screws were replaced with intraoperative navigation. Then, attention was brought to perform a minimal invasive osteotomy/ facetectomy at the left L3-L4 and DBX was placed for posterolateral arthrodesis. Then, attention was brought to perform the TLIF part of the procedure. The METRx tube was then placed over separate fascial incision and was centered over the right L3-L4 facet exposing the lamina of the L3 towards the right side as well as the base of the spinous process. High-speed drill was used to perform a medial fasciectomy as well as complete laminectomy towards the other side in order to fully decompress the thecal sac because of the presence of stenosis as depicted from the preoperative MRI. The laminectomy was completed with the Kerrison punches. Bone graft from the laminectomy and medial facetectomy part of the procedure was saved for the use as autograft at the arthrodesis part of the procedure. The ligamentum flavum was gently removed and after performing a foraminotomy, the thecal sac and the nerve root was gently retracted medially. A discectomy and preparation of the disc space on the right L3-L4 was performed after incising the annulus fibrosus with #11 surgical blade. The preparation of the disc space was performed with the use of dilators, pituitary rongeurs, curettes, and Kerrison punches. After appropriate sizing of the disc space, an 8 mm height Medtronic Elevate expandable cage was inserted after being filled with a mixture of iliac crest bone graft, locally harvested bone graft and DBX, while prior to insertion, the disc space was packed with the same bone graft material. After expansion of the cage, the intensive care unit registered nurse was removed and after the confirmation of meticulous hemostasis and copious irrigation and meticulous inspection, the tubular retractor was then gently removed, and the fascial defect was approximated with interrupted 0 Vicryl sutures. Then, attention was brought to insert 2 cobalt chrome rods through the same fascial incisions and they were secured temporarily with screw head caps. Intraoperative O-arm imaging confirmed excellent placement of all hardware. The right L3 pedicle screw was found to be slightly inferior without evidence of violating the pedicle. Nevertheless, it was elected to check the screw trajectory and redirect the screw. After removing the chi, the right L3 screw was gently repositioned and after replacing the chi, O-arm imaging confirmed excellent placement of all hardware. Of note, during the check of the pedicle screw trajectory, no breaches were identified. After final O-arm imaging confirmed excellent placement of all hardware, the screw extenders as well as the caps were removed after final tightening of the screw head caps. Then, after copious irrigation, confirmation of meticulous hemostasis, and meticulous inspection, the fascial openings were approximated with interrupted 0 Vicryl sutures. The wound was then copiously irrigated and after confirmation of meticulous hemostasis and meticulous inspection, the wound was closed by layers with interrupted inverted 0 Vicryl sutures to approximate the subcutaneous tissue as well as 2-0 inverted Vicryl sutures to approximate the superficial part of the subcutaneous tissue. The skin was then covered with Dermabond. At the end of the procedure, all counts were reported to be correct. The patient remained hemodynamically stable through-out the case. Intraoperative electrophysiological monitoring remained stable throughout the case. The patient was then turned supine, he was extubated, he was transferred to Recovery in excellent condition. The case was done with the assistance of an ACCOUNTING MACHINE SERVICER because of the complexity of the case. [id number]/[facility] #: [id number] [place]
[2019-09-07] MEDS: Acetaminophen TAB* 325 MG PO PRN (21:54)
[2019-09-07] MEDS ORDERED: Phenylephrine 40 MCG/ML SYRINGE ONE (23:07)
[2019-09-08 05:01] LABS: ABS Lymphocytes 1.4 10^3/ul (1.0-4.8); ABS Monocytes 0.8 10^3/ul (0-0.8); ABS Neutrophils 7.3 10^3/ul (1.5-7.7); Hematocrit 38 % (42-52); Hemoglobin 13.4 g/dL (14.0-18.0); Lymphocyte % 14.7 %; Mean Corpuscular HGB Conc 35 g/dL (31-36); Mean Corpuscular Hemoglobin 32 pg (27-31); Mean Corpuscular Volume 90 fL (80-94); Mean Platelet Volume 7.6 fL (7.4-10.4); Nucleated Red Blood Cells % 0.1; Platelet Count 213 10^3/uL (150-450); Red Blood Count 4.22 10^6 /uL (4.18-5.48); Red Cell Distribution Width 14 % (10-15); White Blood Count 9.5 10^3/uL (3.5-10.8)
[2019-09-08 05:19] LABS: Calcium 8.5 mg/dL (8.6-10.3); EGFR African American 129.9 (>60); EGFR Non-African American 107.3 (>60); Potassium 3.3 mmol/L (3.5-5.0)
[2019-09-08] MEDS: Acetaminophen TAB* 325 MG PO PRN ×2 (07:33→11:35)
--- NOTE | 2019-09-08 07:58 | PN ---
Progress Note - Progress Note Date of Service: 09/08/19 SOAP: Subjective: [] No events ON. Patient tolerated procedure well yesterday. One episode of vomiting yesterday. Tolerates PO well, ambulates, voids. Preop pain resolved. Wants to go home. Objective: []VSS, Afebrile. Wound s,c,d AAOx3, STANTON, CN II-XII grossly intact, Motor 5/5 all extremities Sensory grossly intact to light touch Assessment: [] 59 yom POD#1 Rt L3-4 TLIF, L3 laminectomy and revision or previous instrumentation. Plan: [] Monitor VS, Neurochecks. Encourage ambulation. XR this am. DC plan today Full instructions given to patient: Activity: OOB with brace. No lifting, No bending, No driving Keep incision dry. May shower in two days. No baths Follow up in office in 7-10 days for wound check. Aayush Jenkins MD
[2019-09-08] MEDS ORDERED: amLODIPine TAB* 5 MG PO SCH ×2 (09:00)
[2019-09-08] MEDS ORDERED: Losartan TAB* 25 MG PO SCH (09:00)
[2019-09-08] MEDS ORDERED: Allopurinol TAB* 300 MG PO SCH (09:00)
[2019-09-08] MEDS ORDERED: Hydrochlorothiazide TAB* 25 MG PO SCH (09:00)
[2019-09-08] MEDS ORDERED: Potassium Chlor TAB* 20 MEQ TAB.ER PO ONE ×2 (09:27)
[2019-09-08] MEDS: KCL 20 MEQ/100 ML IVPREMIX* 20 MEQ/100 ML BAG IV SCH ×2 (10:21→13:54)
[2019-09-08 15:24] LABS: BUN/Creatinine Ratio 18.1 (8-20); Calcium 8.4 mg/dL (8.6-10.3); EGFR African American 115.5 (>60); EGFR Non-African American 95.5 (>60); Potassium 3.6 mmol/L (3.5-5.0)
[2019-09-08 15:33] VITALS: BP 137/63
--- NOTE | 2019-09-09 00:57 | DS ---
CC: Dr. Booth * DISCHARGE SUMMARY: DATE OF ADMISSION: 09/07/19 DATE OF DISCHARGE: 09/08/19 PRIMARY CARE PHYSICIAN: Dr. Booth. NEUROSURGEON: Dr. Jenkins. PROVIDER: MAGDALENO Grayson ATTENDING PHYSICIAN WHILE IN THE HOSPITAL: Dr. Valdez Duran * (dictated by MAGDALENO Grayson). PRIMARY DIAGNOSES: Spinal stenosis, status post L3-L4 TLIF and L3 laminectomy and revision of previous instrumentation. SECONDARY DIAGNOSES: 1. Hypertension. 2. Gout. PROCEDURES WHILE IN THE HOSPITAL: TLIF at L3-L4 level and L3 laminectomy and revision of previous instrumentation with Dr. Jenkins on 09/07/19. STUDIES WHILE IN THE HOSPITAL: Lumbar spine x-ray on 09/08/19, posterior fusion at L4-S1, per Dr. Jenkins, alignment is good. PERTINENT LAB DATA: Potassium on the morning of 09/08/19 was 3.3 and afternoon was 3.6. HISTORY OF PRESENT ILLNESS/HOSPITAL COURSE: Jagjit Vincent is a 59-year-old male with past medical history of hypertension, gout, and lumbar stenosis, who presented for an elective surgery with Dr. Jenkins on 09/07/19. He tolerated surgery well but did have vomiting after the surgery into the evening. His pain was little well controlled. On the day of discharge, he was taking Tylenol and felt his pain was well controlled. He was seen by Physical Therapy, who felt that he was safe for discharge home and will be getting outpatient physical therapy. He was given TLSO brace and had good alignment on repeat x-ray. He was seen by Dr. Jenkins on day of discharge, who felt that he was safe for discharge. The patient had no loss of bowel or bladder control. He is ambulating well around to the unit with his brace. He has no numbness, tingling, or weakness in his lower extremities. He feels his pain is tolerable. The patient's hypertension was well controlled during his hospital stay. DISCHARGE PLAN: Diet: Regular. Activity: The patient is to avoid lifting, bending, twisting, and driving. He is to be wearing his TLSO brace anytime he is upright or standing. He is to follow up with Dr. Jenkins in 7 to 10 days for wound check. He is to keep the incision dry. He may shower in 2 days and is advised not to use a bath per Dr. Jenkins. He is should follow up with Dr. Booth in a week just to have repeat BMP. I do believe his hypokalemia is related to his vomiting and did resolve with repletion. The patient was advised to return to the emergency department if he is experiencing any weakness, numbness, tingling of his lower extremities, loss of bowel or bladder control, severe abdominal pain not resolved by pain medications , fever, chills, or changes in his wound including purulent drainage or significant bleeding. DISCHARGE MEDICATIONS: 1. Senna 2 tabs p.o. bedtime p.r.n. constipation. 2. [place] 5/325 one tab p.o. q.4 hours p.r.n. pain, maximum daily dose 6 tabs. 3. Tylenol 650 mg p.o. q.4 hours p.r.n. pain. Continued home medications: 1. Amlodipine 10 mg p.o. daily. 2. Naproxen 220 p.o. daily p.r.n. pain. 3. Losartan 12.5 mg p.o. daily. 4. Hydrochlorothiazide 12.5 mg p.o. daily. 5. CBD oil 40 mg p.o. daily. 6. Allopurinol 300 mg p.o. daily. CONDITION ON DISCHARGE: Stable. DISPOSITION: Home. TIME SPENT: Approximately 40 minutes was spent on this discharge, approximately half this time was spent at bedside evaluating the patient and discussing the plan of care. MAGDALENO GRAYSON [id number]/[facility] #: [id number] [place]
== END 2019-09-08 19:25 | disposition home or self-care (01) | DRG 304 ==
LOC: AA 05:42 → SSU 14:14
PROVIDERS: ADMIT Neurological Surgery; ATTEND Neurological Surgery
PROC: 0QB20ZZ Excision of Right Pelvic Bone, Open Approach (ICD-10-PCS; 2019-09-07)
PROC: 0QP004Z Removal of Internal Fixation Device from Lumbar Vertebra, Open Approach (ICD-10-PCS; 2019-09-07)
PROC: 01NB0ZZ Release Lumbar Nerve, Open Approach (ICD-10-PCS; 2019-09-07)
PROC: 0SG00AJ Fusion of Lumbar Vertebral Joint with Interbody Fusion Device, Posterior Approach, Anterior Column, Open Approach (ICD-10-PCS; principal; 2019-09-07 07:30)
DX: M48.061 Spinal stenosis, lumbar region without neurogenic claudication (principal); M43.16 Spondylolisthesis, lumbar region; M47.26 Other spondylosis with radiculopathy, lumbar region; I10 Essential (primary) hypertension; M51.36 Other intervertebral disc degeneration, lumbar region; M10.9 Gout, unspecified; E87.6 Hypokalemia; Z79.899 Other long term (current) drug therapy; Z82.5 Family history of asthma and other chronic lower respiratory diseases; Z82.49 Family history of ischemic heart disease and other diseases of the circulatory system; Z83.3 Family history of diabetes mellitus; Z82.3 Family history of stroke
CPT/HCPCS: 36415; 72100; 76000; 80048; 85025; 88300; A9270-GY; C1713; C9359; J0330; J0690; J1100; J1240; J2250; J2405; J2704; J3010; J3480